=== PATIENT | female | born 1965 | race Caucasian/White ===

== ENCOUNTER → 2017-09-09 | Outpatient (CLI) | payer OTHER ==
[~2017-09-09] MED LIST: ACYC-114 PO; HYDR12.58 PO
== END | disposition home or self-care (01) ==
LOC: STAR 14:30
PROVIDERS: ATTEND Surgery
DX: Z01.818 Encounter for other preprocedural examination (principal); K62.89 Other specified diseases of anus and rectum; R00.1 Bradycardia, unspecified
CPT/HCPCS: 93005

== ENCOUNTER 2017-09-12 11:23 | Day surgery (SDC) | payer OTHER ==
[2017-09-09 15:40] LABS: BASOPHILS # (AUTO) 0.07 x10^3/uL (0-0.1); BASOPHILS % (AUTO) 1 % (0-1); EOSINOPHILS # (AUTO) 0.23 x10^3/uL (0-0.4); EOSINOPHILS % (AUTO) 2 % (1-7); LYMPHOCYTES # (AUTO) 2.41 x10^3/uL (1-3.4); LYMPHOCYTES % (AUTO) 22 % (22-44); MD NO; MEAN CORPUSCULAR HGB CONC 34.2 g/dL (32.4-35.8); MEAN CORPUSCULAR VOLUME 90.6 fL (80-100); MEAN PLATELET VOLUME 8.1 fL (7.4-10.4); MONOCYTES # (AUTO) 0.79 x10^3/uL (0.2-0.8); MONOCYTES % (AUTO) 7 % (2-9); NEUTROPHILS # (AUTO) 7.62 x10^3/uL (1.8-6.8); NEUTROPHILS % (AUTO) 69 % (42-75); PLATELET COUNT 308 x10^3/uL (130-400); RED BLOOD COUNT 4.59 x10^6/uL (3.82-5.3); RED CELL DISTRIBUTION WIDTH 12.9 % (9.6-15.2)
[2017-09-09 15:44] LABS: ALBUMIN 3.8 g/dL (3.4-5.0); ANION GAP 6 mmol/L (5-15); CALCIUM 9.1 mg/dL (8.5-10.1); CHLORIDE 106 mmol/L (98-107)
[2017-09-09 15:47] LABS: ALANINE AMINOTRANSFERASE 18 U/L (12-78); ALKALINE PHOSPHATASE 100 U/L (45-117); BILIRUBIN,TOTAL 0.4 mg/dL (0.2-1.0); CREATININE 0.67 mg/dL (0.55-1.02); TOTAL PROTEIN 7.2 g/dL (6.4-8.2)
[~2017-09-12] VITALS: Ht 170.2 cm; Wt 64.0 kg
[~2017-09-12 11:23] MED LIST changes: +BUPIVACAINE LIPOSOME/PF 20ML INFIL ONE
[2017-09-12] MEDS ORDERED: LACTATED RINGERS 1,000 ML IV SCH (12:07)
[2017-09-12 12:15] LABS: HCG UR SG 1.009 (1.003-1.030)
[2017-09-12 12:35] VITALS: BP 118/74
[2017-09-12] MEDS ORDERED: MIDAZOLAM 1 MG/ML, 2ML ONE (13:03)
[2017-09-12] MEDS ORDERED: FENTANYL PF 250 MCG/5ML ONE (13:03)
[2017-09-12] MEDS ORDERED: PROPOFOL 10 MG/ML, 20ML ONE (13:15)
[2017-09-12] MEDS ORDERED: SUCCINYLCHOLINE 20 MG/ML, 10ML ONE (13:15)
[2017-09-12] MEDS ORDERED: DEXAMETHASONE 4 MG/ML, 1ML ONE ×2 (13:15)
[2017-09-12] MEDS ORDERED: ONDANSETRON 2MG/ML, 2ML ONE ×2 (13:17)
[2017-09-12] MEDS ORDERED: KETOROLAC 30 MG/1 ML ONE (13:18)
[2017-09-12] MEDS ORDERED: PROMETHAZINE 25 MG/ML, 1ML IV PRN (13:30)
[2017-09-12] MEDS ORDERED: OXYcodone 5 MG/5 ML ORAL.SOL UDC PO PRN (13:30)
[2017-09-12] MEDS ORDERED: MEPERIDINE/PF 25MG/0.5ML IVPush PRN (13:30)
[2017-09-12] MEDS ORDERED: LABETALOL 5MG/ML, 20ML IV PRN (13:30)
[2017-09-12] MEDS ORDERED: hydrALAzine 20 MG/ML, 1ML IV PRN (13:30)
[2017-09-12] MEDS ORDERED: LORazepam 2 MG/ML, 1ML IVPush PRN (13:30)
[2017-09-12] MEDS ORDERED: FENTANYL PF 100 MCG/2ML IV PRN (13:30)
[2017-09-12] MEDS ORDERED: ACETAMINOPHEN 325 MG TABLET PO PRN (13:30)
[2017-09-12] MEDS ORDERED: HYDROmorphone 2 MG/ML, 1ML IV PRN (13:30)
[2017-09-12] MEDS ORDERED: HALOPERIDOL 5 MG/ML IV PRN (13:30)
[2017-09-12] MEDS ORDERED: BUPIVACAINE LIPOSOME/PF 20ML INFIL ONE (13:41)
== END 2017-09-12 16:05 | disposition home or self-care (01) ==
LOC: OUT 11:23
PROVIDERS: ATTEND Surgery
DX: K64.8 Other hemorrhoids (principal); K64.4 Residual hemorrhoidal skin tags; K62.89 Other specified diseases of anus and rectum; K62.9 Disease of anus and rectum, unspecified; Z87.39 Personal history of other diseases of the musculoskeletal system and connective tissue; Z98.890 Other specified postprocedural states; Z88.8 Allergy status to other drugs, medicaments and biological substances; Z72.89 Other problems related to lifestyle; Z79.899 Other long term (current) drug therapy
CPT/HCPCS: 36415; 45378; 46260; 80053; 81025; 85025; 88304; 88305; C9290; J0330; J1100; J1885; J2250; J2405; J2704; J3010; J7120